=== PATIENT | female | born 1990 | race Caucasian/White ===

== ENCOUNTER 2018-09-06 18:49 | Emergency (ER) | payer BC, OTHER ==
[2018-09-06 18:54] VITALS: BP 127/74
--- NOTE | 2018-09-06 19:19 | EDPHY ---
H & P Time Seen by Provider: 09/06/18 19:12 HPI/ROS: CHIEF COMPLAINT: Abdominal pain,"left kidney pain" HISTORY OF PRESENT ILLNESS: Patient is a 28-year-old female presents emergency department with"left kidney pain."Patient was diagnosed with a urinary tract infection on September 02. She has been taking Bactrim. She does not feels though she is getting any better. She now has mild discomfort wraps around to her left flank. She has had previous kidney infection. She reports subjective fever. No chills. No nausea or vomiting. No diarrhea. Patient has no dysuria. She states she is currently on her menses is unsure if she has hematuria. REVIEW OF SYSTEMS: 10 systems were reveiwed and are negative with the exception of the elements mentioned in the history of present illness. Past Medical/Surgical History: Includes hypothyroidism, pyelonephritis, sepsis, lung disease Social history: Patient does not smoke Smoking Status: Never smoked Physical Exam: Vitals noted GENERAL: Well-appearing, in no acute distress, alert. HEENT: Eyes normal to inspection, normal pharynx, no signs of dehydration. NECK: Normal, supple. RESPIRATORY: Clear to auscultation bilaterally, no rales, rhonchi or wheezing. CVS: Regular rate and rhythm, no rubs, murmurs, or gallops. ABDOMEN: Soft, nontender, nondistended, no organomegaly. Benign BACK: Normal to inspection, no CVA tenderness. Normal. SKIN: Normal color, no rash, warm, dry. No pallor. EXTREMITIES: No pedal edema, no calf tenderness, no Homans sign or cords, no joint swelling. NEURO/PSYCH: Alert and oriented, normal mood and affect, normal motor sensory exam. Constitutional: Initial Vital Signs Temperature (C) 36.7 C 09/06/18 18:51 Heart Rate 82 09/06/18 18:51 Respiratory Rate 18 09/06/18 18:51 Blood Pressure 127/74 H 09/06/18 18:51 O2 Sat (%) 100 09/06/18 18:51 O2 Delivery Mode Room Air Allergies/Adverse Reactions: metoclopramide Allergy (Verified 09/06/18 18:51) Home Medications: Medication Instructions Recorded Levothyroxine 09/06/18 Medical Decision Making ED Course/Re-evaluation: In the emergency department I discussed possible etiologies with the patient. I answered all her questions. Urine was obtained. Differential Diagnosis: My differential includes but is not limited to urinary tract infection, pyelonephritis, kidney stone, small-bowel obstruction, perforation, diverticulitis Departure - Departure Disposition: Home, Routine, Self-Care Clinical Impression: Left flank pain Abdominal pain Qualifiers: Abdominal location: unspecified location Qualified Code(s): R10.9 - Unspecified abdominal pain Condition: Good Instructions: Flank Pain (ED)
[2018-09-06] MEDS ORDERED: CEPHALEXIN 500MG PREPACK#4 BTL TAKEHOME ONE (19:47)
== END 2018-09-06 20:03 | disposition home or self-care (01) ==
DX: R10.9 Unspecified abdominal pain (principal)